=== PATIENT | female | born 1940 ===

== ENCOUNTER → 2021-05-02 | Outpatient (CLI) | payer MEDICARE ==
[~2021-05-02] MED LIST: DONE5TAB7 PO; MELO7.5T31 PO; OMEP40CA8 PO; OXYB10TA26 PO; PARO30TA3 PO
[2021-05-02 12:31] LABS: BASOPHILS % (AUTO) 1 % (0-1); EOSINOPHILS % (AUTO) 4 % (1-7); LYMPHOCYTES % (AUTO) 20 % (22-44); MEAN CORPUSCULAR HEMOGLOBIN 31.7 pg (27.0-34.8); MEAN CORPUSCULAR HGB CONC 33.4 g/dL (32.4-35.8); MONOCYTES % (AUTO) 10 % (2-9); NEUTROPHILS % (AUTO) 66 % (42-75); PLATELET COUNT 266 x10^3/uL (130-400); RED BLOOD COUNT 4.25 x10^6/uL (3.82-5.3); RED CELL DISTRIBUTION WIDTH 13.7 % (9.6-15.2)
[2021-05-02 12:32] LABS: CALCIUM 8.7 mg/dL (8.5-10.1); CHLORIDE 108 mmol/L (98-107); CREATININE 0.69 mg/dL (0.55-1.02)
[2021-05-02 12:35] LABS: INTERNATIONAL NORMALIZED RATIO 0.98 (0.93-1.1); PROTHROMBIN TIME 10.5 Seconds (9.6-11.5)
[2021-05-02 12:40] LABS: MICROSCOPIC INDICATED
[2021-05-02 12:41] LABS: ANION GAP 4 mmol/L (5-15)
== END | disposition home or self-care (01) ==
LOC: STAR 11:16
PROVIDERS: ATTEND Neurological Surgery
DX: Z01.812 Encounter for preprocedural laboratory examination (principal); Z20.822 Contact with and (suspected) exposure to COVID-19; M51.37 Other intervertebral disc degeneration, lumbosacral region; R00.1 Bradycardia, unspecified
CPT/HCPCS: 36415; 71046; 72110; 80048; 81001; 85025; 85610; 85730; 87086; 93005; U0003; U0005

== ENCOUNTER 2021-05-08 07:54 | Inpatient (IN) | payer MEDICARE ==
[~2021-05-08] VITALS: Ht 160 cm; Wt 80.6 kg
[~2021-05-08 07:54] MED LIST changes: +BUPIVACAINE/PF 0.25% ONE; +EPINEPHRINE 1 MG/ML, 1ML ONE; +FENTANYL PF 100 MCG/2ML ONE; +GENTAMICIN 80 MG/2 ML ONE; +PROPOFOL 100 ML ONE; +THROMBIN (RECOMBINANT) 5,000 UNIT VIAL TP ONE; +VANCOMYCIN 1,000 MG ONE
[2021-05-08] MEDS ORDERED: CHLORHEXIDINE 15 ML UDC ONE (08:28)
[2021-05-08] MEDS ORDERED: LACTATED RINGERS 1,000 ML IV SCH (08:30)
[2021-05-08] MEDS ORDERED: CHLORHEXIDINE 15 ML UDC PO ONE (08:30)
[2021-05-08] MEDS ORDERED: FENTANYL PF 250 MCG/5ML ONE (10:11)
[2021-05-08] MEDS ORDERED: ROCURONIUM 10MG/ML,5ML ONE (10:26)
[2021-05-08] MEDS ORDERED: CEFAZOLIN 1,000 MG ONE (10:26)
[2021-05-08] MEDS ORDERED: PROPOFOL 10 MG/ML, 20ML ONE (10:26)
[2021-05-08] MEDS ORDERED: DEXAMETHASONE 4 MG/ML, 1ML ONE (10:26)
[2021-05-08] MEDS ORDERED: ONDANSETRON 2MG/ML, 2ML ONE (10:26)
[2021-05-08] MEDS ORDERED: GLYCOPYRROLATE 0.2MG/1ML, 5ML ONE (10:26)
[2021-05-08] MEDS ORDERED: NEOSTIGMINE 1 MG/ML, 10ML ONE (10:26)
[2021-05-08] MEDS ORDERED: MEPERIDINE/PF 25MG/0.5ML IVPush PRN (11:30)
[2021-05-08] MEDS ORDERED: PROMETHAZINE 25 MG/ML, 1ML IVPush PRN (11:30)
[2021-05-08] MEDS ORDERED: HALOPERIDOL 5 MG/ML IV PRN (11:30)
[2021-05-08] MEDS ORDERED: FENTANYL PF 100 MCG/2ML IV PRN (11:30)
[2021-05-08] MEDS ORDERED: morphine SULFATE 10 MG/ML, 1ML IVPush PRN (11:30)
[2021-05-08] MEDS ORDERED: LABETALOL 5MG/ML, 20ML IV PRN (11:30)
[2021-05-08] MEDS ORDERED: hydrALAzine 20 MG/ML, 1ML IV PRN (11:30)
[2021-05-08] MEDS ORDERED: HYDROmorphone 1 MG/ML, 1ML INJ IVPush PRN ×2 (11:30→13:30)
[2021-05-08] MEDS ORDERED: OXYcodone 5 MG/5 ML ORAL.SOL UDC PO PRN (11:30)
[2021-05-08] MEDS ORDERED: ACETAMINOPHEN 325 MG TABLET PO PRN (11:30)
[2021-05-08] MEDS ORDERED: BUPIVACAINE/PF 0.5% ONE (12:13)
[2021-05-08] MEDS ORDERED: BACITRACIN OINT 500U/GM, 15 GM ONE (13:12)
[2021-05-08] MEDS ORDERED: ONDANSETRON 2MG/ML, 2ML IVPush PRN (13:30)
[2021-05-08] MEDS ORDERED: DIPHENHYDRAMINE 50 MG/ML, 1ML IVPush PRN (13:30)
[2021-05-08] MEDS ORDERED: PROMETHAZINE 25 MG/ML, 1ML IM PRN (13:30)
[2021-05-08] MEDS ORDERED: METHOCARBAMOL 1,000 MG in DEXTROSE 5% 100 ML IV ONE (13:30)
[2021-05-08] MEDS ORDERED: BISACODYL 10 MG SUPP PR PRN (13:30)
[2021-05-08] MEDS ORDERED: MAGNESIUM HYDROXIDE 8%, 30ML UDC PO PRN (13:30)
[2021-05-08] MEDS ORDERED: PHARMACY MAY ADJ FOR RENAL FX MC PRN (13:30)
[2021-05-08] MEDS ORDERED: HYDROcodone/APAP 5/325 TABLET PO PRN (13:30)
[2021-05-08] MEDS ORDERED: SENNA/DOCUSATE TABLET PO PRN (13:30)
[2021-05-08] MEDS: LABETALOL 5MG/ML 40ML VIAL IVPush SCH ×2 (13:30→21:30)
[2021-05-08] MEDS ORDERED: DIPHENHYDRAMINE 50 MG CAPSULE PO PRN (13:30)
[2021-05-08] MEDS ORDERED: LABETALOL 5MG/ML, 20ML IVPush PRN (13:30)
[2021-05-08] MEDS ORDERED: DIPHENHYDRAMINE 50 MG/ML, 1ML IM PRN (13:30)
[2021-05-08] MEDS ORDERED: OXYcodone 5 MG/5 ML ORAL.SOL UDC ONE (14:07)
[2021-05-08] MEDS ORDERED: ACETAMINOPHEN 650 MG/20.3 ML UDC ONE (14:07)
[2021-05-08] MEDS: D5%-0.9% NACL+KCL 20MEQ 1,000 ML IV SCH (18:08)
[2021-05-08] MEDS: HYDROcodone/APAP 10/325 MG TABLET PO PRN (19:01)
[2021-05-08] MEDS: CEFAZOLIN PMX 1GM/50ML 50 ML IVPB SCH (19:05)
[2021-05-08 19:17] VITALS: BP 116/67
[2021-05-09 02:24] VITALS: BP 105/57
[2021-05-09] MEDS: CEFAZOLIN PMX 1GM/50ML 50 ML IVPB SCH (02:48)
[2021-05-09] MEDS: LABETALOL 5MG/ML 40ML VIAL IVPush SCH ×3 (05:18→21:30)
[2021-05-09] MEDS: OMEPRAZOLE 20 MG CAPSULE.DR PO SCH (06:01)
[2021-05-09] MEDS: ENOXAPARIN 40 MG/0.4 ML SQ SCH (07:10)
[2021-05-09 07:30] VITALS: BP 119/70
[2021-05-09] MEDS: DONEPEZIL 5 MG TABLET PO SCH (08:30)
[2021-05-09] MEDS: PAROXETINE 10 MG TABLET PO SCH (08:37)
[2021-05-09] MEDS: OXYBUTYNIN CHLORIDE 5 MG TABLET PO SCH ×2 (10:01→22:51)
[2021-05-09] MEDS: D5%-0.9% NACL+KCL 20MEQ 1,000 ML IV SCH (12:19)
[2021-05-09] MEDS: HYDROcodone/APAP 10/325 MG TABLET PO PRN ×3 (12:28→22:52)
[2021-05-09 13:15] VITALS: BP 110/61
[2021-05-09 18:37] VITALS: BP 111/58
[2021-05-10 02:10] VITALS: BP 105/50
[2021-05-10] MEDS: LABETALOL 5MG/ML 40ML VIAL IVPush SCH ×2 (05:30→13:20)
[2021-05-10] MEDS: OMEPRAZOLE 20 MG CAPSULE.DR PO SCH (06:31)
[2021-05-10] MEDS: ENOXAPARIN 40 MG/0.4 ML SQ SCH (06:32)
[2021-05-10] MEDS: HYDROcodone/APAP 10/325 MG TABLET PO PRN ×2 (06:32→13:19)
[2021-05-10 07:06] VITALS: BP 116/63
[2021-05-10] MEDS: D5%-0.9% NACL+KCL 20MEQ 1,000 ML IV SCH (07:48)
[2021-05-10] MEDS ORDERED: METH-640 PO (08:03)
[2021-05-10] MEDS ORDERED: HYDR1TAB53 PO (08:03)
[2021-05-10] MEDS: DONEPEZIL 5 MG TABLET PO SCH (08:13)
[2021-05-10] MEDS: PAROXETINE 10 MG TABLET PO SCH (08:13)
[2021-05-10] MEDS: OXYBUTYNIN CHLORIDE 5 MG TABLET PO SCH (08:13)
[2021-05-10 13:31] VITALS: BP 118/62
[2021-05-10] MEDS ORDERED: METHOCARBAMOL 750 MG TABLET PO SCH (21:30)
== END 2021-05-10 14:00 | disposition home or self-care (01) | DRG 520 ==
LOC: OUT 07:54 → 4NE 13:25 → OUT 16:22
PROVIDERS: ADMIT Neurological Surgery; ATTEND Neurological Surgery
PROC: 01NB0ZZ Release Lumbar Nerve, Open Approach (ICD-10-PCS; 2021-05-08)
PROC: 4A11X4G Monitoring of Peripheral Nervous Electrical Activity, Intraoperative, External Approach (ICD-10-PCS; 2021-05-08)
PROC: 00NY0ZZ Release Lumbar Spinal Cord, Open Approach (ICD-10-PCS; principal; 2021-05-08 10:00)
DX: M48.062 Spinal stenosis, lumbar region with neurogenic claudication (principal); M47.26 Other spondylosis with radiculopathy, lumbar region
CPT/HCPCS: 72100; 95938; 95941; C1729; G0378; J0171; J0690; J1100; J1650; J2405; J2704; J2710; J3010; J3370; J1580; J2800; J3480